=== PATIENT | female | born 1980 | race Caucasian/White ===

== ENCOUNTER 2021-11-25 01:36 | Emergency (ER) | payer MEDICAID, OTHER ==
[2021-11-25 01:38] VITALS: BP 120/103
[2021-11-25] MEDS ORDERED: LACTATED RINGERS 1,000 ML IV ONE ×2 (01:45→02:30)
[2021-11-25 01:56] LABS: BASOPHILS % (AUTO) 0 % (0-10); EOSINOPHILS # (AUTO) 0.1 10^3/uL (0.0-0.3); EOSINOPHILS % (AUTO) 1 % (0-10); HEMATOCRIT 50 % (35-52); HEMOGLOBIN 16.9 g/dL (11.5-16.0); LYMPHOCYTES # (AUTO) 2.6 10^3/uL (1.0-4.0); LYMPHOCYTES % (AUTO) 38 % (12-44); MEAN CORPUSCULAR HEMOGLOBIN 33 pg (25-34); MEAN CORPUSCULAR HGB CONC 34 g/dL (32-36); MEAN CORPUSCULAR VOLUME 97 fL (80-99); MEAN PLATELET VOLUME 9.6 fL (9.0-12.2); MONOCYTES # (AUTO) 0.3 10^3/uL (0.0-1.0); MONOCYTES % (AUTO) 4 % (0-12); NEUTROPHILS # (AUTO) 3.7 10^3/uL (1.8-7.8); NEUTROPHILS % (AUTO) 55 % (42-75); PLATELET COUNT 250 10^3/uL (130-400); WHITE BLOOD COUNT 6.8 10^3/uL (4.3-11.0)
[2021-11-25 02:08] LABS: ALBUMIN 4.6 GM/DL (3.2-4.5); CHLORIDE 109 MMOL/L (98-107); POTASSIUM 3.5 MMOL/L (3.6-5.0); SODIUM 143 MMOL/L (135-145)
[2021-11-25 02:09] LABS: CALCIUM 9.2 MG/DL (8.5-10.1)
[2021-11-25 02:10] LABS: AMYLASE 79 U/L (25-125)
[2021-11-25 02:11] LABS: GLUCOSE 99 MG/DL (70-105); TOTAL PROTEIN 8.3 GM/DL (6.4-8.2)
[2021-11-25 02:12] LABS: CARBON DIOXIDE 19 MMOL/L (21-32)
[2021-11-25 02:13] LABS: BILIRUBIN,TOTAL 0.3 MG/DL (0.1-1.0)
[2021-11-25 02:14] LABS: ALKALINE PHOSPHATASE 65 U/L (40-136); CREATININE SERUM 0.69 MG/DL (0.60-1.30); GFR ESTIMATED 112
[2021-11-25 02:15] LABS: BUN/CREATININE RATIO 9
[2021-11-25 02:16] LABS: ACETAMINOPHEN < 10 UG/ML (10-30)
[2021-11-25 02:17] LABS: ALANINE AMINOTRANSFERASE 16 U/L (0-55); MAGNESIUM 2.2 MG/DL (1.6-2.4)
[2021-11-25 02:18] LABS: LIPASE 119 U/L (8-78)
--- NOTE | 2021-11-25 04:42 | ED General ---
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 STAFF CALLED EMS R/T PT BEING INTOXICATED AT WORK. EMS ARRIVES WITH PT AND BAG OF 9 EMPTY BOTTLES LABELED 50 CC OF 49.5% ETOH BY VOLUME. 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 ) History of Present Illness Date Seen by Provider: Nov 25, 2021 Time Seen by Provider: 01:39 Initial Comments PT ARRIVES VIA EMS FROM WORK AT [employer] PT WAS FOUND TO BE INTOXICATED AT WORK, AND HAD IN HER POSSESSION 9 EMPTY BOTTLES--50 ML EACH--OF 99 PROOF/ 49.5% ALCOHOL--"99 BANANAS"--PT STATES IS [place]OD[place]. PT STATES SHE DRINKS EVERY DAY, BUT WILL NOT ELABORATE HOW MUCH OR WHAT SHE NORMALLY DRINKS PT DENIES TAKING ANY MEDICATIONS DENIES ANY SUICIDAL IDEATIONS PT STATES SHE SMOKES MARIJUANA DAILY AND SMOKES 1/2-1 PPD OF CIGARETTES. PT DENIES ANY MEDICAL PROBLEMS, STATES SHE DOES NOT HAVE OR SEE ANY DOCTORS OF ANY KIND HAS NOT HAD ANY TREATMENT FOR ALCOHOL ABUSE. PCP: NONE Allergies and Home Medications Allergies Coded Allergies: No Known Drug Allergies (Unverified , 11/25/21) Patient Home Medication List Home Medication List Reviewed: Yes Review of Systems Review of Systems Constitutional: no symptoms reported Respiratory: no symptoms reported Cardiovascular: no symptoms reported Gastrointestinal: no symptoms reported : No (S/P BTL) LMP: Nov 04, 2021 Psychiatric/Neurological: See HPI Past Hsigdwx-[id number]-Hndczw Hx Patient Social History Tobacco Use?: Yes Tobacco type used: Cigarettes Smoking Status: Current Everyday Smoker Substance use?: Yes Substance type: Marijuana Substance frequency: Daily Alcohol Use?: Yes Alcohol type: Hard Liquor Alcohol Frequency: Daily Past Medical History Surgeries: Yes Tubal Ligation Respiratory: No Cardiac: No Neurological: No : No 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 oz. kg; BMI Method: General Appearance: No Apparent Distress, WD/WN, Other (APPEARS MILDLY INTOX ICATED, WITH STRONG ODOR OF ALCOHOL.) HEENT: PERRL/EOMI Neck: Normal Inspection Respiratory: Normal Breath Sounds, No Accessory Muscle Use, No Respiratory Distress Cardiovascular: Regular Rate, Rhythm, No Murmur Gastrointestinal: Non Tender, Soft Extremity: Normal Inspection Neurologic/Psychiatric: Alert, No Motor/Sensory Deficits, Other (ORIENTED TO PERSON, PLACE, MONTH/YEAR, AND SITUATION. LIMITED MEMORY OF EVENTS OF TONIGHT) Skin: Normal Color, Warm/Dry Progress/Results/Core Measures Suspected Sepsis SIRS Temperature: Pulse: 108 Respiratory Rate: 16 Laboratory Tests 11/25/21 01:48: White Blood Count 6.8 Blood Pressure 120 /103 Mean: 109 Laboratory Tests 11/25/21 01:48: Creatinine 0.69, Platelet Count 250, Total Bilirubin 0.3 Results/Orders Lab Results Laboratory Tests Test 11/25/21 01:48 Range/Units White Blood Count 6.8 4.3-11.0 10^3/uL Red Blood Count 5.10 3.80-5.11 10^6/uL Hemoglobin 16.9 H 11.5-16.0 g/dL Hematocrit 50 35-52 % Mean Corpuscular Volume 97 80-99 fL Mean Corpuscular Hemoglobin 33 25-34 pg Mean Corpuscular Hemoglobin Concent 34 32-36 g/dL Red Cell Distribution Width 14.0 10.0-14.5 % Platelet Count 250 130-400 10^3/uL Mean Platelet Volume 9.6 9.0-12.2 fL Immature Granulocyte % (Auto) 1 % Neutrophils (%) (Auto) 55 42-75 % Lymphocytes (%) (Auto) 38 12-44 % Monocytes (%) (Auto) 4 0-12 % Eosinophils (%) (Auto) 1 0-10 % Basophils (%) (Auto) 0 0-10 % Neutrophils # (Auto) 3.7 1.8-7.8 10^3/uL Lymphocytes # (Auto) 2.6 1.0-4.0 10^3/uL Monocytes # (Auto) 0.3 0.0-1.0 10^3/uL Eosinophils # (Auto) 0.1 0.0-0.3 10^3/uL Basophils # (Auto) 0.0 0.0-0.1 10^3/uL Immature Granulocyte # (Auto) 0.1 0.0-0.1 10^3/uL Sodium Level 143 135-145 MMOL/L Potassium Level 3.5 L 3.6-5.0 MMOL/L Chloride Level 109 H 98-107 MMOL/L Carbon Dioxide Level 19 L 21-32 MMOL/L Anion Gap 15 H 5-14 MMOL/L Blood Urea Nitrogen 6 L 7-18 MG/DL Creatinine 0.69 0.60-1.30 MG/DL Estimat Glomerular Filtration Rate 112 BUN/Creatinine Ratio 9 Glucose Level 99 70-105 MG/DL Calcium Level 9.2 8.5-10.1 MG/DL Corrected Calcium 8.5-10.1 MG/DL Magnesium Level 2.2 1.6-2.4 MG/DL Total Bilirubin 0.3 0.1-1.0 MG/DL Aspartate Amino Transf (AST/SGOT) 13 5-34 U/L Alanine Aminotransferase (ALT/SGPT) 16 0-55 U/L Alkaline Phosphatase 65 40-136 U/L Total Protein 8.3 H 6.4-8.2 GM/DL Albumin 4.6 H 3.2-4.5 GM/DL Amylase Level 79 25-125 U/L Lipase 119 H 8-78 U/L Serum Test, Qualitative NEGATIVE NEGATIVE Acetaminophen Level < 10 L 10-30 UG/ML Serum Alcohol 383 *H <10 MG/DL My Orders Orders - JANNY MORA DO Ed Iv/Invasive Line Start (11/25/21 01:45) Monitor-Rhythm Ecg Trace Only (11/25/21 01:45) Acetaminophen (11/25/21 01:45) Alcohol (11/25/21:45) Amylase (11/25/21:45) Cbc With Automated Diff (11/25/21:45) Comprehensive Metabolic Panel (11/25/21:45) Hcg,Qualitative Serum (11/25/21:45) Lipase (11/25/21:45) Magnesium (11/25/21:45) Ed Iv/Invasive Line Start (11/25/21:45) Ed Iv/Invasive Line Start (2/20/22 01:45) Lactated Ringers (Lr 1000 Ml Iv Solution (11/25/21 01:45) Ed Iv/Invasive Line Start (11/25/21 02:20) Lactated Ringers (Lr 1000 Ml Iv Solution (11/25/21 02:30) Medications Given in ED Current Medications Medications Dose Ordered Sig/Amelia Route Start Time Stop Time Status Last Admin Dose Admin Lactated Ringer's 1,000 ml @ 0 mls/hr Q0M ONCE IV 11/25/21 01:45 11/25/21 01:47 DC 11/25/21 02:08 999 MLS/HR Vital Signs/I&O 11/25/21 11/25/21 01:38 01:38 Temp 37.0 Pulse 108 Resp 16 B/P (MAP) 120/103 (109) Pulse Ox 96 O2 Delivery Room Air Room Air Capillary Refill : Less Than 3 Seconds Blood Pressure Mean: 109 Progress Note : Progress Note GIVEN IV FLUIDS PT REFUSES TO GIVE URINE SPECIMEN PT RIPPED OUT IV, AND THEN SHORTLY AFTER RN RESTARTED IT, PT ELOPED AT 0245--SPECIFICALLY STATING SHE WAS LEAVING "AMA" ( BUT REFUSED TO SIGN PAPERS) , AND RAN OUT THE BACK DOORS/AMBULANCE ENTRANCE. RN WAS ABLE TO STOP PT AND REMOVE IV, AND SHE REFUSED TO ALLOW RN TO PLACE GAUZE OVER THE SITE, AND INSTEAD THE PT BEGAN SUCKING ON THE AREA ON HER ARM AT THE IV SITE. SPEECH WAS CLEAR AND GAIT STEADY WHEN SHE LEFT. Departure Impression Primary Impression: Acute alcoholic intoxication Additional Impression: Left against medical advice Disposition: 07 AGAINST MEDICAL ADVICE Condition: Against Medical Advice Departure-Patient Inst. Patient Instructions: ALCOHOL AND SUBSTANCE ABUSE JANNY MORA DO Nov 25, 2021 04:41
== END 2021-11-25 02:48 | disposition left against medical advice (07) ==
LOC: ER 01:42
DX: F10.129 Alcohol abuse with intoxication, unspecified (principal); F17.210 Nicotine dependence, cigarettes, uncomplicated
CPT/HCPCS: 80053; 82150; 83690; 83735; 84703; 85025; 93041; 99284; G0480 ×2; 36415; 80320; 80329